=== PATIENT | male | born 1970 | race Caucasian/White ===

== ENCOUNTER 2017-04-17 14:04 | Emergency (ER) | payer SELFPAY ==
[~2017-04-17] VITALS: Ht 167.6 cm; Wt 90.0 kg
[2017-04-17 14:05] VITALS: BP 155/92; PULSE 104; RESP 17; TEMP 98.4; O2SAT 98
--- NOTE | 2017-04-17 15:21 | PD ---
HPI . left knee pain for about 1 week Chief Complaint: Musculoskeletal Complaint Time Seen by Provider: 15:17 Travel History International Travel<30 days: No Contact w/Intl Traveler<30days: No Traveled to known affect area: No History of Present Illness HPI 46 yr old male here with c/o left knee pain for about 1 week without known mechanism of injury. He is able to walk, but tells me it is somewhat painful to walk. He says ibuprofen helps the pain, but he wanted to know what was wrong with his knee. He denies falling or injuring himself. PFSH Social History Tobacco Use: No Allergies-Medications (Allergen,Severity, Reaction): Coded Allergies: No Known Allergies (Unverified , 04/17/17) Reported Meds & Prescriptions Reported Meds & Active Scripts Active No Active Prescriptions or Reported Medications Review of Systems General / Constitutional: No: Fever Eyes: No: Visual changes HENT: No: Headaches Cardiovascular: No: Chest Pain or Discomfort Respiratory: No: Shortness of Breath Gastrointestinal: No: Abdominal Pain Genitourinary: No: Dysuria Musculoskeletal: Positive: Pain (left knee) Skin: No Rash Neurologic: No: Weakness Psychiatric: No: Depression Endocrine: No: Polydipsia Hematologic/Lymphatic: No: Easy Bruising Physical Exam Narrative GENERAL: AAO x 3, no acute distress, Well-nourished, well-developed patient. SKIN: Warm and dry. No visible rashes or bruising. HEAD: Normocephalic and atraumatic. EYES: No scleral icterus. No injection or drainage. ENT: No nasal drainage noted. Mucous membranes pink. Airway patent. NECK: Supple, trachea midline. No JVD. CARDIOVASCULAR: Regular rate and rhythm without murmurs, gallops, or rubs. RESPIRATORY: Breath sounds equal bilaterally. No accessory muscle use. No rhonchi or rales. GASTROINTESTINAL: Abdomen soft, non-tender, nondistended. EXTREMITIES: No cyanosis or edema. Left knee no overt abnormality. No erythema or edema. Flexion and extension is normal. Negative [place] and [place]. He is ambulatory BACK: No obvious deformity. NEURO: CN II-12 intact, LE 5/5, no focal deficits PSYCH: AAO x 3, normal affect. Data Data Last Documented VS Vital Signs Date Time Temp Pulse Resp B/P (MAP) Pulse Ox O2 Delivery O2 Flow Rate FiO2 04/17/17 14:05 98.4 104 17 155/92 (113) 98 Orders Orders Cali Bandage (04/17/17 15:17) Crutches (04/17/17 15:17) MDM Medical Decision Making Medical Screen Exam Complete: Yes Emergency Medical Condition: Yes Medical Record Reviewed: Yes Differential Diagnosis Sprain, internal derangement of the knee, less likely fracture Narrative Course 46-year-old male here with complaints of left knee pain for one week. On examination there are no gross abnormalities. Patient is and ventilatory. I do not believe x-ray imaging is indicated as I do not suspect a bony injury. I believe that he could have a possible meniscal injury. I've explained this to the patient and recommend he follow up with outpatient provider for outpatient MRI. His significant other requests MRI in ED and I explained this is not emergent. I advised him to try ibuprofen 800 mg [id number] 3 times a day. In the meantime I will provide him with Cali wrap and crutches. Patient verbalized understanding of instructions, questions were answered, and thanked me for their care. I advised them if their condition worsens, please return to the nearest emergency room for further care. Diagnosis Primary Impression: Knee pain, left Qualified Codes: M25.562 - Pain in left knee Patient Instructions: General Instructions Additional Instructions: Rest the affected area as much as possible. Ice this area for 15-20 minutes at a time. You can do this every hour or as much as tolerated. Keep this area compressed (cali bandage) as tolerated. Elevate this area. Use ibuprofen as needed for pain and inflammation. Med/Other Pt SpecificInfo: No Change to Meds Scripts No Active Prescriptions or Reported Meds Disposition: 01 DISCHARGE HOME Condition: Stable Glo Ramires Apr 17, 2017 15:21
[2017-04-17 15:47] VITALS: BP 154/91
== END 2017-04-17 16:03 | disposition home or self-care (01) ==
LOC: NEPD 14:04
DX: M25.562 Pain in left knee (principal)
CPT/HCPCS: 99283; E0113